=== PATIENT | male | born 1960 | race African-American/Black ===

== ENCOUNTER 2018-05-02 13:36 | Emergency (ER) | payer OTHER ==
[~2018-05-02] VITALS: Ht 167.6 cm; Wt 75.0 kg
[2018-05-02 14:05] VITALS: BP 148/89
[2018-05-02] MEDS ORDERED: PERTUSS(ACELL),DIPH,TET VAC/PF 0.5 ML VIAL IM ONE (14:15)
== END 2018-05-02 14:34 | disposition home or self-care (01) ==
LOC: EMS 13:37
DX: H60.01 Abscess of right external ear (principal); R03.0 Elevated blood-pressure reading, without diagnosis of hypertension; I10 Essential (primary) hypertension; F17.210 Nicotine dependence, cigarettes, uncomplicated
CPT/HCPCS: 90471; 90715; 99283